=== PATIENT | male | born 1960 | race Caucasian/White ===

== ENCOUNTER 2018-03-04 20:48 | Emergency (ER) | payer OTHER ==
[~2018-03-04] VITALS: Ht 172.7 cm; Wt 88.5 kg
== END 2018-03-04 22:39 | disposition home or self-care (01) ==
LOC: ER 20:48
DX: H60.8X1 Other otitis externa, right ear (principal)

== ENCOUNTER 2022-04-24 14:09 | Emergency (ER) | payer OTHER ==
[~2022-04-24] VITALS: Ht 172.7 cm; Wt 84.8 kg
[2022-04-24] MEDS ORDERED: TAMSULOSIN HCL0.4 MG PO (14:36)
== END 2022-04-24 18:48 | disposition home or self-care (01) ==
LOC: ER 14:09
DX: N23 Unspecified renal colic (principal); Z91.013 Allergy to seafood